=== PATIENT | male | born 1990 | race American Indian/Alaskan Native ===

== ENCOUNTER 2017-10-12 07:00 | Emergency (ER) | payer OTHER ==
[2017-10-12] MEDS ORDERED: NACL ONE (07:20)
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
[2017-10-12 08:04] LABS: Alanine Aminotransferase 20 units/L (7-56); Albumin 4.6 g/dL (3.9-5); Albumin/Globulin Ratio 1.2 %; Alkaline Phosphatase 80 units/L (35-129); BUN/Creatinine Ratio 11; Blood Urea Nitrogen 8 mg/dL (9-20); Calcium 9.1 mg/dL (8.4-10.2); Carbon Dioxide 23 mmol/L (22-30); Glucose 84 mg/dL (75-100); Total Protein 8.6 g/dL (6.3-8.2)
[2017-10-12 08:05] LABS: Anion Gap 21 mmol/L; Chloride 96.3 mmol/L (98-107); Sodium 136 mmol/L (137-145)
[2017-10-12 08:14] LABS: Basophils % (Auto) 0.2 % (0.0-1.8); Eosinophils % (Auto) 0.1 % (0.0-4.3); Hematocrit 41.9 % (35.5-45.6); Hemoglobin 14.1 gm/dl (11.8-15.2); Mean Corpuscular HGB Conc 34 % (32-34); Mean Corpuscular Hemoglobin 28 pg (28-32); Mean Corpuscular Volume 85 fl (84-94); Red Blood Count 4.96 M/mm3 (3.65-5.03); Red Cell Distribution Width 14.7 % (13.2-15.2); White Blood Count 6.5 K/mm3 (4.5-11.0)
[2017-10-12 08:19] LABS: Platelet Count 154 K/mm3 (140-440)
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
[2017-10-12] MEDS ORDERED: TRIPLE ANTIBIOTIC TP ONE (09:06)
[2017-10-12 09:11] VITALS: BP 124/78
== END 2017-10-12 09:15 ==
LOC: ED 07:00
DX: S16.1XXA Strain of muscle, fascia and tendon at neck level, initial encounter (principal); S30.1XXA Contusion of abdominal wall, initial encounter; S00.01XA Abrasion of scalp, initial encounter; S09.90XA Unspecified injury of head, initial encounter; V89.2XXA Person injured in unspecified motor-vehicle accident, traffic, initial encounter; Y93.9 Activity, unspecified; Y99.9 Unspecified external cause status; Y92.410 Unspecified street and highway as the place of occurrence of the external cause
CPT/HCPCS: 36415; 70450; 72125; 74177; 80053; 85025; 86850; 86900; 86901; 99284; Q9967; A6250